=== PATIENT | male | born 1995 | race American Indian/Alaskan Native ===

== ENCOUNTER 2016-09-16 22:54 | Emergency (ER) | payer SELFPAY ==
[2016-09-17 01:01] VITALS: BP 127/67
[2016-09-17 02:04] LABS: Basophils % (Auto) 0.6 % (0.0-1.8); Eosinophils % (Auto) 1.4 % (0.0-4.3); Hematocrit 42.4 % (35.5-45.6); Hemoglobin 14.1 gm/dl (11.8-15.2); Mean Corpuscular HGB Conc 33 % (32-34); Mean Corpuscular Hemoglobin 28 pg (28-32); Mean Corpuscular Volume 83 fl (84-94); Platelet Count 237 K/mm3 (140-440); Red Blood Count 5.12 M/mm3 (3.65-5.03); White Blood Count 8.3 K/mm3 (4.5-11.0)
[2016-09-17 02:21] LABS: Alanine Aminotransferase 14 units/L (7-56); Albumin 4.2 g/dL (3.9-5); Albumin/Globulin Ratio 1.6 %; Alkaline Phosphatase 88 units/L (35-129); Anion Gap 15 mmol/L; Bilirubin,Total 0.5 mg/dL (0.1-1.2); Blood Urea Nitrogen 9 mg/dL (9-20); Calcium 8.9 mg/dL (8.4-10.2); Carbon Dioxide 28 mmol/L (22-30); Glucose 69 mg/dL (75-100); Lipase 20 units/L (13-60); Potassium 3.2 mmol/L (3.6-5.0); Sodium 141 mmol/L (137-145); Total Protein 6.8 g/dL (6.3-8.2)
[2016-09-17 03:42] LABS: Bilirubin,Urine NEG (Negative); Blood,Urine NEG (Negative); Ketones,Urine TR mg/dL (Negative); Leukocyte Esterase,Urine NEG (Negative); Mucus,Urine 3+ /HPF; Nitrite,Urine NEG (Negative)
--- NOTE | 2016-09-18 01:45 | ED Elopement Review ---
ED Pt Elopement review - Results review Lab results: Laboratory Tests 09/17/16 09/17/16 09/17/16 01:47 01:47 Unknown WBC 8.3 RBC 5.12 H Hgb 14.1 Hct 42.4 MCV 83 L MCH 28 MCHC 33 RDW 14.0 Plt Count 237 Lymph % (Auto) 29.9 [place] % (Auto) 11.2 H Eos % (Auto) 1.4 Baso % (Auto) 0.6 Lymph # 2.5 [place] # 0.9 H Eos # 0.1 Baso # 0.0 Seg Neutrophils % 56.9 Seg Neutrophils # 4.7 Sodium 141 Potassium 3.2 L Chloride 101.0 Carbon Dioxide 28 Anion Gap 15 BUN 9 Creatinine 1.0 Estimated GFR > 60 BUN/Creatinine Ratio 9.00 Glucose 69 L Calcium 8.9 Total Bilirubin 0.5 AST 19 ALT 14 Alkaline Phosphatase 88 Total Protein 6.8 Albumin 4.2 Albumin/Globulin Ratio 1.6 Lipase 20 Urine Color Yellow Urine Turbidity Clear Urine pH 7.0 Ur Specific [place] 1.030 Urine Protein 30 mg/dl Urine Glucose (UA) Neg Urine Ketones Tr Urine Blood Neg Urine Nitrite Neg Urine Bilirubin Neg Urine Urobilinogen 2.0 Ur Leukocyte Esterase Neg Urine WBC (Auto) 1.0 Urine RBC (Auto) 7.0 U Epithel Cells (Auto) 1.0 Amorphous Crystals Few Urine Mucus 3+ - Call Back decision Pt Call Back Decision: Pt to F/U with PMD (low potassium, needs supplement/ banana's, follow up, may return if symptoms continue)
== END 2016-09-17 03:41 | disposition left against medical advice (07) ==
LOC: ED 22:54
DX: K92.0 Hematemesis (principal); Z53.21 Procedure and treatment not carried out due to patient leaving prior to being seen by health care provider
CPT/HCPCS: 36415; 80053; 81001; 83690; 85025

== ENCOUNTER 2016-09-17 18:43 | Emergency (ER) | payer SELFPAY ==
[2016-09-17 19:05] VITALS: BP 129/73
[2016-09-17] MEDS ORDERED: KEPPRA 1,000 MG/NS 0.75% 100ML 1,000 MG/100 ML BAG IV ONE (23:40)
[2016-09-17] MEDS ORDERED: TORADOL IM ONE (23:40)
--- NOTE | 2016-09-18 00:36 | Emergency Department Report ---
ED Seizure HPI - General Chief Complaint: Seizure Stated Complaint: SEIZURE /VOMITTING Time Seen by Provider: 09/17/16 23:10 Source: patient Mode of arrival: Ambulatory Limitations: No Limitations - History of Present Illness Initial Comments: 21-year-old male with a past medical history of seizure disorder presents to the hospital complaints of seizure yesterday and chest pain. Patient had a seizure yesterday. He denies any preceding symptoms. He has been out of seizure medication Dilantin and Depakote for the last 3 weeks. This has not been taking his medication because he does not have a primary care doctor for med refill. Patient states he came to the ED today with anterior chest pain for the last 2 days. Pain is in the middle of the chest and upper mid chest, moderate, constant, fluctuates in intensity, and aching. Worse with palpation and movement. Patient performs heavy lifting at work. Denies shortness of breath, recent cough, or fever. 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 - Related Data Previous Rx's Medication Instructions Recorded Last Taken Type Divalproex Dr [Depakote Dr] 500 mg PO BID #60 tablet 05/31/[address] [DepaKOTE DR] 250 mg PO BID #60 tablet 09/18/16 Unknown Rx Ibuprofen [Motrin] 800 mg PO Q8HR PRN #30 tablet 09/18/16 Unknown Rx Phenytoin [Dilantin] 100 mg PO Q8HR #90 capsule 09/18/16 Unknown Rx Allergies Allergy/AdvReac Type Severity Reaction Status Date / Time shellfish derived AdvReac Anaphylaxis Verified 05/27/15 19:09 ED Review of Systems ROS: Stated complaint: SEIZURE /VOMITTING Other details as noted in HPI Comment: All other systems reviewed and negative Other: Constitutional: No fevers chills Eyes: No eye pain visual changes ENT: No ear pain or throat pain Neck: Denies pain Respiratory: Denies cough wheezing shortness of breath Cardiovascular: Denies cpalpitations, syncope GI: Denies abdominal pain, nausea, vomiting, diarrhea : Denies dysuria Musculoskeletal: Denies back pain Skin: Denies rash, lesions, erythema Neurologic: Denies headache, numbness, weakness ED Past Medical Hx - Past Medical History Previous Medical History?: Yes Hx Hypertension: No Hx Heart Attack/AMI: No Hx Congestive Heart Failure: No Hx Diabetes: No Hx Seizures: Yes (last known seizure >3 weeks ago) Hx Psychiatric Treatment: Yes ('eratic behavioral disorder') Hx Asthma: No Hx COPD: No Hx HIV: No Additional medical history: Tetanus updated yesterday - Surgical History Past Surgical History?: Yes Hx Appendectomy: Yes Additional Surgical History: cyst removed from chest - Social History Smoking Status: Current Every Day Smoker Substance Use Type: Alcohol, Prescribed - Medications Home Medications: Home Medications Medication Instructions Recorded Confirmed Last Taken Type Divalproex Dr [Depakote Dr] 500 mg PO BID #60 tablet 05/31/[address] [DepaKOTE DR] 250 mg PO BID #60 tablet 09/18/16 Unknown Rx Ibuprofen [Motrin] 800 mg PO Q8HR PRN #30 tablet 09/18/16 Unknown Rx Phenytoin [Dilantin] 100 mg PO Q8HR #90 capsule 09/18/16 Unknown Rx ED Physical Exam - General Limitations: No Limitations - Other Other exam information: General: No limitations, patient is alert in no acute distress Head exam: Atraumatic, normocephalic Eyes exam: Normal appearance, pupils equal reactive to light, extraocular movements intact ENT: Moist mucous membrane, normal oropharynx Neck exam: Normal inspection, full range of motion, no meningismus nontender Respiratory exam: Clear to auscultation bilateral, no wheezes, rales, crackles Cardiovascular: Normal rate and rhythm, normal heart sounds. Reproducible sternal chest wall tenderness Abdomen: Soft, nondistended, and nontender, with normal bowel sounds, no rebound, or guarding Extremity: Full range of motion normal inspection no deformity Back: Normal Inspection, full range of motion, no tenderness Neurologic: Alert, oriented x3, cranial nerves intact, no motor or sensory deficit Psychiatric: normal affect, normal mood Skin: Warm, dry, intactm ED Course Vital Signs 09/17/16 19:02 Temperature 98.3 F Pulse Rate 93 H Respiratory 20 Rate Blood Pressure 129/73 O2 Sat by Pulse 100 Oximetry - Reevaluation(s) Reevaluation #1: 09/18/16 00:38 Patient treated with Depakote by mouth, Dilantin IV, and Toradol ED Medical Decision Making - EKG Data -: EKG Interpreted by Me (nsr rate 73) - EKG Data When compared to previous EKG there are: previous EKG unavailable - Medical Decision Making Patient will be treated symptomatically for chest wall pain as well as given a rest from his job for 2 days to recover. Patient received IV medications for seizures and will be discharged on his stated medication doses - Differential Diagnosis costochondritis, atypical chest pain, bradycardia seizure, medication nonco Critical Care Time: No Critical care attestation.: If time is entered above; I have spent that time in minutes in the direct care of this critically ill patient, excluding procedure time. ED Disposition Clinical Impression: Breakthrough seizure, Costochondritis, acute Disposition: DISCHARGED TO HOME OR SELFCARE Is pt being admited?: No Does the pt Need Aspirin: No Condition: Stable Instructions: Costochondritis (ED), Recurrent Seizures Adult (ED) Additional Instructions: Take the medication as prescribed. Follow-up with the primary care doctor and neurologist provided. Return if symptoms worsen Prescriptions: Divalproex Dr [DepaKOTE DR] 250 mg PO BID #60 tablet Ibuprofen [Motrin] 800 mg PO Q8HR PRN #30 tablet PRN Reason: Pain Phenytoin [Dilantin] 100 mg PO Q8HR #90 capsule Referrals: DARON IBANEZ MD [Staff Physician] - 3-5 Days [facility] [Provider Group] - 3-5 Days Time of Disposition: 01:11
== END 2016-09-18 01:24 | disposition home or self-care (01) ==
LOC: ED 18:43
DX: G40.909 Epilepsy, unspecified, not intractable, without status epilepticus (principal); M94.0 Chondrocostal junction syndrome [Tietze]; F17.200 Nicotine dependence, unspecified, uncomplicated; Z91.013 Allergy to seafood
CPT/HCPCS: 93005; 93010; 96365; 96372; 99283; J1885; J1953

== ENCOUNTER 2018-07-29 19:19 | Emergency (ER) | payer SELFPAY ==
--- NOTE | 2018-07-29 22:55 | Emergency Department Report ---
ED Chest Pain HPI - General Chief Complaint: Chest Pain Stated Complaint: HEAD/CHEST PAIN Source: patient Mode of arrival: Ambulatory Limitations: No Limitations - History of Present Illness Initial Comments: This is a 23-year-old -[place] male who presents with chest pain 3 weeks. He states when he wakes up in the morning he is covered in sweat and feel chest pain to the center of chest. He reports symptoms have been intermittent for the past 3 weeks. He also complains of headache and a nonproductive cough. He is a current cigarette smoker one pack per 3 days. He denies dizziness, radiating pain, shortness of breath, nausea or vomiting, or abdominal pain. MD Complaint: chest pain Onset/Timin -: week(s) Onset: awoke with symptoms Pain Location: substernal Pain Radiation: none Severity: moderate Quality: tightness Consistency: intermittent Improves With: nothing Worsens With: nothing re: diaphoresis. denies: nausea, vomting, dyspnea, sense of impending doom Other Symptoms: cough. denies: fever, syncope, rash, acid taste in mouth, leg swelling, palpitations, burping Treatments Prior to Arrival: none - Related Data On Oral Contraceptives: No Previous Rx's Medication Instructions Recorded Last Taken Type Divalproex Dr [Nate Chicas] 500 mg PO BID #60 tablet 05/31/[address] Luis CHICAS] 250 mg PO BID #60 tablet 09/18/16 Unknown Rx Ibuprofen [Motrin] 800 mg PO Q8HR PRN #30 tablet 09/18/16 Unknown Rx Phenytoin [Dilantin] 100 mg PO Q8HR #90 capsule 09/18/16 Unknown Rx Amoxicillin/K Clav Tab [Augmentin 1 tab PO Q12HR #20 tab 06/17/18 Unknown Rx 875MG TAB] Cetirizine HCl [ZyrTEC] 10 mg PO QAM 14 Days #14 capsule 06/17/18 Unknown Rx Fluticasone [Flonase] 1 spray NS QDAY 14 Days #1 bottle 06/17/18 Unknown Rx Ibuprofen [Motrin] 600 mg PO Q8H PRN #12 tablet 06/17/18 Unknown Rx methylPREDNISolone [Medrol Dose 4 mg PO DAILY #1 tab.ds.pk 06/17/18 Unknown Rx To] Allergies Allergy/AdvReac Type Severity Reaction Status Date / Time shellfish derived AdvReac Anaphylaxis Verified 05/27/15 19:09 Heart Score - HEART Score History: Slightly suspicious EKG: Normal Age: < 45 Risk factors: 1-2 risk factors Troponin: < normal limit HEART Score: 1 - Critical Actions Critical Actions: 0-3 pts:0.9-1.7%risk of adverse cardiac event.Candidate for discharge ED Review of Systems ROS: Stated complaint: HEAD/CHEST PAIN Other details as noted in HPI Constitutional: diaphoresis. denies: chills, fever ENT: denies: ear pain, throat pain Respiratory: denies: cough, shortness of breath, wheezing Cardiovascular: chest pain. denies: palpitations Endocrine: no symptoms reported Gastrointestinal: denies: abdominal pain, nausea, diarrhea Neurological: denies: headache, weakness, paresthesias Psychiatric: denies: anxiety, depression ED Past Medical Hx - Past Medical History Hx Hypertension: No Hx Heart Attack/AMI: No Hx Congestive Heart Failure: No Hx Diabetes: No Hx Seizures: Yes (last known seizure >3 weeks ago) Hx Psychiatric Treatment: Yes ('eratic behavioral disorder') Hx Asthma: No Hx COPD: No Hx HIV: No Additional medical history: Tetanus updated yesterday - Surgical History Hx Appendectomy: Yes (?) Additional Surgical History: cyst removed from chest ? - Social History Smoking Status: Current Every Day Smoker Substance Use Type: Alcohol - Medications Home Medications: Home Medications Medication Instructions Recorded Confirmed Last Taken Type Divalproex [Nate Chicas] 500 mg PO BID #60 tablet 05/31/[address] Luis CHICAS] 250 mg PO BID #60 tablet 09/18/16 Unknown Rx Ibuprofen [Motrin] 800 mg PO Q8HR PRN #30 tablet 09/18/16 Unknown Rx Phenytoin [Dilantin] 100 mg PO Q8HR #90 capsule 09/18/16 Unknown Rx Amoxicillin/K Clav Tab [Augmentin 1 tab PO Q12HR #20 tab 06/17/18 Unknown Rx 875MG TAB] Cetirizine HCl [ZyrTEC] 10 mg PO QAM 14 Days #14 capsule 06/17/18 Unknown Rx Fluticasone [Flonase] 1 spray NS QDAY 14 Days #1 bottle 06/17/18 Unknown Rx Ibuprofen [Motrin] 600 mg PO Q8H PRN #12 tablet 06/17/18 Unknown Rx methylPREDNISolone [Medrol Dose 4 mg PO DAILY #1 tab.ds.pk 06/17/18 Unknown Rx To] ED Physical Exam - General Limitations: No Limitations General appearance: alert, in no apparent distress - ENT ENT exam: Present: mucous membranes moist, other (turbinates mildly congested with clear discharge) - Neck Neck exam: Present: normal inspection. Absent: lymphadenopathy - Respiratory Respiratory exam: Present: normal lung sounds bilaterally. Absent: respiratory distress, wheezes, rales, rhonchi, stridor, chest wall tenderness - Cardiovascular Cardiovascular Exam: Present: regular rate, normal rhythm. Absent: systolic murmur, diastolic murmur, rubs, gallop - GI/Abdominal GI/Abdominal exam: Present: soft, normal bowel sounds. Absent: distended, tenderness, guarding, rebound, rigid, organomegaly, mass - Neurological Exam Neurological exam: Present: alert, oriented X3 - Psychiatric Psychiatric exam: Present: normal affect, normal mood - Skin Skin exam: Present: warm, dry, intact, normal color. Absent: rash ED Course Vital Signs 07/29/18 07/30/18 07/30/18 19:44 00:27 00:30 Temperature 98.2 F Pulse Rate 90 89 103 H Respiratory 16 15 17 Rate Blood Pressure 125/64 112/52 O2 Sat by Pulse 98 98 Oximetry 07/30/18 07/30/18 00:46 02:20 Temperature Pulse Rate 87 84 Respiratory 15 17 Rate Blood Pressure 112/52 O2 Sat by Pulse 99 98 Oximetry ED Medical Decision Making - Lab Data Result diagrams: 07/29/18 23:18 07/29/18 23:18 Lab Results 07/29/18 07/29/18 07/30/18 Range/Units 23:18 23:18 00:40 WBC 6.9 (4.5-11.0) K/mm3 RBC 5.79 H (3.65-5.03) M/mm3 Hgb 16.0 H (11.8-15.2) gm/dl Hct 48.1 H (35.5-45.6) % MCV 83 L (84-94) fl MCH 28 (28-32) pg MCHC 33 (32-34) % RDW 14.3 (13.2-15.2) % Plt Count 288 (140-440) K/mm3 Lymph % (Auto) 32.9 (13.4-35.0) % [place] % (Auto) 9.4 H (0.0-7.3) % Eos % (Auto) 4.1 (0.0-4.3) % Baso % (Auto) 0.8 (0.0-1.8) % Lymph # 2.3 (1.2-5.4) K/mm3 [place] # 0.6 (0.0-0.8) K/mm3 Eos # 0.3 (0.0-0.4) K/mm3 Baso # 0.1 (0.0-0.1) K/mm3 Seg Neutrophils % 52.8 (40.0-70.0) % Seg Neutrophils # 3.6 (1.8-7.7) K/mm3 Sodium 140 (137-145) mmol/L Potassium 4.4 (3.6-5.0) mmol/L Chloride 102.9 (98-107) mmol/L Carbon Dioxide 23 (22-30) mmol/L Anion Gap 19 mmol/L BUN 33 H (9-20) mg/dL Creatinine 0.8 (0.8-1.5) mg/dL Estimated GFR > 60 ml/min BUN/Creatinine Ratio 41 % Glucose 99 (75-100) mg/dL Calcium 9.3 (8.4-10.2) mg/dL Total Bilirubin 0.30 (0.1-1.2) mg/dL AST 27 (5-40) units/L ALT 26 (7-56) units/L Alkaline Phosphatase 82 (35-129) units/L Total Creatine Kinase 229 H (55-170) units/L Troponin T < 0.010 < 0.010 (0.00-0.029) ng/mL Total Protein 7.2 (6.3-8.2) g/dL Albumin 4.9 (3.9-5) g/dL Albumin/Globulin Ratio 2.1 % Triglycerides TNR Cholesterol TNR LDL Cholesterol Direct TNR HDL Cholesterol TNR Cholesterol/HDL Ratio TNR - EKG Data -: No EKG Interpreted by Me (EKG interpreted by the attending) EKG shows normal: sinus rhythm Rate: normal - Radiology Data Radiology results: report reviewed FINAL REPORT PROCEDURE: Chest. TECHNIQUE: PA and lateral views. HISTORY: Chest pain. COMPARISON: No prior studies are available for comparison. FINDINGS: The heart and mediastinum appear normal. The lungs are clear and well expanded. There are no pleural effusions. The soft tissues and regional skeleton are unremarkable. IMPRESSION: Normal study. - Medical Decision Making This is a 23 y.o. male that presents with chest pain for 3 weeks. Patient is stable and was examined by me. Vital signs normal. Labs, EKG, and chest x-ray were obtained. Consult Dr. Cuello. Initial CMP findings of elevated troponin, BUN and creatinine. There was an instrument error with CMP and new results are remarkable. Chest pain. Referral to cardiology and primary care provider. Discussed plan with patient and agreed to plan. No further questions noted by the patient. Discharged home in stable condition. Follow up with PCP in 2-3 days. Critical care attestation.: If time is entered above; I have spent that time in minutes in the direct care of this critically ill patient, excluding procedure time. ED Disposition Clinical Impression: Cough in adult Chest pain Qualifiers: Chest pain type: other chest pain Qualified Code(s): R07.89 - Other chest pain Disposition: DC-01 TO HOME OR SELFCARE Is pt being admited?: No Does the pt Need Aspirin: No Condition: Stable Instructions: Chest Pain (ED) Additional Instructions: Follow-up with primary care provider in cardiology. Return to the emergency room if chest pain, shortness of breath, lightheaded, or nausea or vomiting. Referrals: [facility] [Outside] - 3-5 Days [facility] [Outside] - 3-5 Days [facility] [Outside] - 3-5 Days Forms: Work/School Release Form(ED) Time of Disposition: 02:05
[2018-07-29 23:37] LABS: Basophils # (Auto) 0.1 K/mm3 (0.0-0.1); Basophils % (Auto) 0.8 % (0.0-1.8); Eosinophils # (Auto) 0.3 K/mm3 (0.0-0.4); Eosinophils % (Auto) 4.1 % (0.0-4.3); Hematocrit 48.1 % (35.5-45.6); Lymphocytes # (Auto) 2.3 K/mm3 (1.2-5.4); Lymphocytes % (Auto) 32.9 % (13.4-35.0); Mean Corpuscular HGB Conc 33 % (32-34); Mean Corpuscular Volume 83 fl (84-94); Monocytes # (Auto) 0.6 K/mm3 (0.0-0.8); Monocytes % (Auto) 9.4 % (0.0-7.3); Platelet Count 288 K/mm3 (140-440); Red Blood Count 5.79 M/mm3 (3.65-5.03); Red Cell Distribution Width 14.3 % (13.2-15.2)
--- NOTE | 2018-07-29 23:54 | XRay Report ---
FINAL REPORT PROCEDURE: Chest. TECHNIQUE: PA and lateral views. HISTORY: Chest pain. COMPARISON: No prior studies are available for comparison. FINDINGS: The heart and mediastinum appear normal. The lungs are clear and well expanded. There are no pleural effusions. The soft tissues and regional skeleton are unremarkable. IMPRESSION: Normal study.
[2018-07-29 23:57] LABS: Alanine Aminotransferase 26 units/L (7-56); Albumin 4.9 g/dL (3.9-5); Blood Urea Nitrogen 33 mg/dL (9-20); Hemolysis Index 31
[2018-07-30] MEDS ORDERED: NACL 0.9% 1000 ML 1,000 ML IV ONE (00:29)
[2018-07-30 00:37] LABS: BUN/Creatinine Ratio 41; Calcium 9.3 mg/dL (8.4-10.2)
[2018-07-30 00:38] LABS: Chol/HDL Ratio TNR %; HDL Cholesterol TNR mg/dL (40-59); LDL Cholesterol,Direct TNR mg/dL (50-130)
[2018-07-30 00:52] VITALS: BP 112/52
== END 2018-07-30 02:20 | disposition home or self-care (01) ==
LOC: ED 19:19
DX: R07.89 Other chest pain (principal); R05 Cough; F17.200 Nicotine dependence, unspecified, uncomplicated; Z91.013 Allergy to seafood
CPT/HCPCS: 36415; 71046; 80053; 80061; 82550; 84484; 85025; 93005; 93010

== ENCOUNTER 2019-04-03 09:29 | Emergency (ER) | payer SELFPAY ==
--- NOTE | 2019-04-03 10:27 | Emergency Department Report ---
ED General Adult HPI - General Chief complaint: Abdominal Pain Stated complaint: VOMITING BLOOD/BUMP ON BACK Time Seen by Provider: 04/03/19 10:10 Source: patient Mode of arrival: Ambulatory Limitations: No Limitations - History of Present Illness Initial comments: This is a 24 year old male with a history of bipolar disorder. He states that he vomited "his food" earlier today. After the food emesis he states that he saw bright red blood. He denied eating any red pigmented material. He does not complain of abdominal pain. He does not report black stools or diarrhea. He is no longer nauseated. He states he is does not have a history of GI bleeding at all. He has not been recently drinking alcohol. Patient states that incidentally his fiance saw a bump on his back and he thought he have that checked out as well. -: Sudden Consistency: now resolved Improves with: none Worsens with: none Associated Symptoms: denies other symptoms Treatments Prior to Arrival: none - Related Data Previous Rx's Medication Instructions Recorded Last Taken Type Divalproex Dr [Nate Chicas] 500 mg PO BID #60 tablet 05/31/[address] Luis CHICAS] 250 mg PO BID #60 tablet 09/18/16 Unknown Rx Ibuprofen [Motrin] 800 mg PO Q8HR PRN #30 tablet 09/18/16 Unknown Rx Phenytoin [Dilantin] 100 mg PO Q8HR #90 capsule 09/18/16 Unknown Rx Amoxicillin/K Clav Tab [Augmentin 1 tab PO Q12HR #20 tab 06/17/18 Unknown Rx 875MG TAB] Cetirizine HCl [ZyrTEC] 10 mg PO QAM 14 Days #14 capsule 06/17/18 Unknown Rx Fluticasone [Flonase] 1 spray NS QDAY 14 Days #1 bottle 06/17/18 Unknown Rx Ibuprofen [Motrin] 600 mg PO Q8H PRN #12 tablet 06/17/18 Unknown Rx methylPREDNISolone [Medrol Dose 4 mg PO DAILY #1 tab.ds.pk 06/17/18 Unknown Rx To] Lansoprazole [Prevacid] 15 mg PO BID #30 cap 04/03/19 Unknown Rx Allergies Allergy/AdvReac Type Severity Reaction Status Date / Time shellfish derived AdvReac Anaphylaxis Verified 05/27/15 19:09 ED Review of Systems ROS: Stated complaint: VOMITING BLOOD/BUMP ON BACK Other details as noted in HPI Constitutional: denies: chills, fever Eyes: denies: eye pain, eye discharge, vision change ENT: denies: ear pain, throat pain Respiratory: denies: cough, shortness of breath, wheezing Cardiovascular: denies: chest pain, palpitations Endocrine: no symptoms reported Gastrointestinal: hematemesis. denies: abdominal pain, nausea, diarrhea, constipation, melena, hematochezia Genitourinary: denies: urgency, dysuria Musculoskeletal: denies: back pain, joint swelling, arthralgia Skin: denies: rash, lesions Neurological: denies: headache, weakness, paresthesias Psychiatric: denies: anxiety, depression Hematological/Lymphatic: denies: easy bleeding, easy bruising ED Past Medical Hx - Past Medical History Hx Hypertension: No Hx Heart Attack/AMI: No Hx Congestive Heart Failure: No Hx Diabetes: No Hx Seizures: Yes (last known seizure >3 weeks ago) Hx Psychiatric Treatment: Yes ('eratic behavioral disorder') Hx Asthma: No Hx COPD: No Hx HIV: No Additional medical history: Tetanus updated yesterday - Surgical History Hx Appendectomy: Yes (?) Additional Surgical History: cyst removed from chest ? - Social History Smoking Status: Current Every Day Smoker Substance Use Type: None - Medications Home Medications: Home Medications Medication Instructions Recorded Confirmed Last Taken Type Divalproex Dr [Nate Chicas] 500 mg PO BID #60 tablet 05/31/[address] [Nate CHICAS] 250 mg PO BID #60 tablet 09/18/16 Unknown Rx Ibuprofen [Motrin] 800 mg PO Q8HR PRN #30 tablet 09/18/16 Unknown Rx Phenytoin [Dilantin] 100 mg PO Q8HR #90 capsule 09/18/16 Unknown Rx Amoxicillin/K Clav Tab [Augmentin 1 tab PO Q12HR #20 tab 06/17/18 Unknown Rx 875MG TAB] Cetirizine HCl [ZyrTEC] 10 mg PO QAM 14 Days #14 capsule 06/17/18 Unknown Rx Fluticasone [Flonase] 1 spray NS QDAY 14 Days #1 bottle 06/17/18 Unknown Rx Ibuprofen [Motrin] 600 mg PO Q8H PRN #12 tablet 06/17/18 Unknown Rx methylPREDNISolone [Medrol Dose 4 mg PO DAILY #1 tab.ds.pk 06/17/18 Unknown Rx To] Lansoprazole [Prevacid] 15 mg PO BID #30 cap 04/03/19 Unknown Rx ED Physical Exam - General Limitations: No Limitations General appearance: alert, in no apparent distress - Head Head exam: Present: atraumatic, normocephalic - Eye Eye exam: Present: normal appearance. Absent: scleral icterus - ENT ENT exam: Present: mucous membranes moist - Neck Neck exam: Present: normal inspection - Respiratory Respiratory exam: Present: normal lung sounds bilaterally. Absent: respiratory distress - Cardiovascular Cardiovascular Exam: Present: regular rate, normal rhythm. Absent: systolic murmur, diastolic murmur, rubs, gallop - GI/Abdominal GI/Abdominal exam: Present: soft, normal bowel sounds. Absent: distended, tenderness, guarding, rebound, rigid - Rectal Rectal exam: Present: deferred - Extremities Exam Extremities exam: Present: normal inspection - Back Exam Back exam: Present: normal inspection, other (he is small perhaps 1 cm apparent lipoma is present left flank. It is nonfluctuant.There is no erythema or sign of infection.). Absent: CVA tenderness (R), CVA tenderness (L), muscle spasm, paraspinal tenderness, vertebral tenderness - Neurological Exam Neurological exam: Present: alert, oriented X3, CN II-XII intact. Absent: motor sensory deficit - Psychiatric Psychiatric exam: Present: normal affect, normal mood - Skin Skin exam: Present: warm, dry, intact, normal color. Absent: rash ED Course Vital Signs 04/03/19 04/03/19 04/03/19 09:41 10:32 11:05 Temperature 98.2 F Pulse Rate 85 68 Respiratory 18 12 14 Rate Blood Pressure 118/42 Blood Pressure 117/71 [Right] O2 Sat by Pulse 98 100 Oximetry ED Medical Decision Making - Lab Data Result diagrams: 04/03/19 10:42 04/03/19 10:42 Laboratory Results - last 24 hr 04/03/19 04/03/19 10:42 10:42 WBC 6.5 RBC 5.54 H Hgb 15.7 H Hct 46.6 H MCV 84 MCH 28 MCHC 34 RDW 14.9 Plt Count 268 Lymph % (Auto) 27.3 [place] % (Auto) 9.7 H Eos % (Auto) 2.9 Baso % (Auto) 0.6 Lymph # 1.8 [place] # 0.6 Eos # 0.2 Baso # 0.0 Seg Neutrophils % 59.5 Seg Neutrophils # 3.9 Sodium 139 Potassium 4.5 Chloride 102.2 Carbon Dioxide 25 Anion Gap 16 BUN 13 Creatinine 1.0 Estimated GFR > 60 BUN/Creatinine Ratio 13 Glucose 84 Calcium 9.1 Critical care attestation.: If time is entered above; I have spent that time in minutes in the direct care of this critically ill patient, excluding procedure time. ED Disposition Clinical Impression: Hematemesis of unknown cause, Lipoma of back Disposition: DC- TO HOME OR SELFCARE Is pt being admited?: No Does the pt Need Aspirin: No Condition: Stable Instructions: Gastritis (ED), Lipoma (ED) Additional Instructions: Return any further sign of throwing up blood or black stool or abdominal pain as needed. Follow up with GI doctor. The area on her back appears to be a benign fatty collection. However, evaluation by a cream gatherer as recommended. Follow-up at [facility]/at length with GI. Rx as directed. Avoid aspirin, arthritis medicine alcohol stomach irritants. Prescriptions: Lansoprazole [Prevacid] 15 mg PO BID #30 cap Referrals: [facility] [Provider Group] - 3-5 Days [facility] [Provider Group] - 2-3 Days Time of Disposition: 12:07
[2019-04-03 10:59] LABS: Basophils % (Auto) 0.6 % (0.0-1.8); Eosinophils # (Auto) 0.2 K/mm3 (0.0-0.4); Eosinophils % (Auto) 2.9 % (0.0-4.3); Hematocrit 46.6 % (35.5-45.6); Hemoglobin 15.7 gm/dl (11.8-15.2); Lymphocytes # (Auto) 1.8 K/mm3 (1.2-5.4); Lymphocytes % (Auto) 27.3 % (13.4-35.0); Mean Corpuscular HGB Conc 34 % (32-34); Mean Corpuscular Volume 84 fl (84-94); Monocytes # (Auto) 0.6 K/mm3 (0.0-0.8); Monocytes % (Auto) 9.7 % (0.0-7.3); Platelet Count 268 K/mm3 (140-440); Red Blood Count 5.54 M/mm3 (3.65-5.03); Red Cell Distribution Width 14.9 % (13.2-15.2)
[2019-04-03 11:05] VITALS: BP 117/71
[2019-04-03 11:37] LABS: BUN/Creatinine Ratio 13; Blood Urea Nitrogen 13 mg/dL (9-20); Calcium 9.1 mg/dL (8.4-10.2); Hemolysis Index 18
== END 2019-04-03 12:20 | disposition home or self-care (01) ==
LOC: ED 09:29
DX: K92.0 Hematemesis (principal); D17.1 Benign lipomatous neoplasm of skin and subcutaneous tissue of trunk; F17.200 Nicotine dependence, unspecified, uncomplicated; Z91.013 Allergy to seafood; Z98.890 Other specified postprocedural states
CPT/HCPCS: 36415; 80048; 85025

== ENCOUNTER 2019-05-02 16:40 | Emergency (ER) | payer SELFPAY ==
[2019-05-02 16:51] VITALS: BP 127/79
--- NOTE | 2019-05-02 16:52 | Event Note ---
ED Screening Note ED Screening Note: pt presents N/V/D that began last night no sick contacts last night ate at a restaurant last night and believes the food was bad abdominal cramping PMHx seizures no allergies to meds This initial assessment/diagnostic orders/clinical plan/treatment(s) is/are subject to change based on patients health status, clinical progression and re- assessment by fellow clinical providers in the ED. Further treatment and workup at subsequent clinical providers discretion. Patient/guardian urged not to elope from the ED as their condition may be serious if not clinically assessed and managed. Initial orders include: labs
[2019-05-02 17:49] LABS: Basophils # (Auto) 0.1 K/mm3 (0.0-0.1); Basophils % (Auto) 0.8 % (0.0-1.8); Eosinophils # (Auto) 0.2 K/mm3 (0.0-0.4); Eosinophils % (Auto) 2.8 % (0.0-4.3); Hematocrit 46.9 % (35.5-45.6); Hemoglobin 15.8 gm/dl (11.8-15.2); Lymphocytes # (Auto) 2.3 K/mm3 (1.2-5.4); Lymphocytes % (Auto) 28.8 % (13.4-35.0); Mean Corpuscular HGB Conc 34 % (32-34); Mean Corpuscular Volume 83 fl (84-94); Monocytes # (Auto) 0.7 K/mm3 (0.0-0.8); Monocytes % (Auto) 9.4 % (0.0-7.3); Platelet Count 274 K/mm3 (140-440); Red Blood Count 5.68 M/mm3 (3.65-5.03); Red Cell Distribution Width 14.2 % (13.2-15.2)
[2019-05-02] MEDS ORDERED: ONDANSETRON 4 MG/2 ML INJ IM ONE (17:53)
[2019-05-02] MEDS ORDERED: DICYCLOMINE 20 MG/2 ML INJ IM ONE (17:53)
--- NOTE | 2019-05-02 18:08 | Emergency Department Report ---
ED N/V/D HPI - General Chief complaint: Abdominal Pain Stated complaint: ABD PAIN/VOMITING/DIARRHEA Time Seen by Provider: 05/02/19 16:50 Source: patient Mode of arrival: Ambulatory Limitations: No Limitations - History of Present Illness MD complaint: nausea, vomiting, diarrhea -: Gradual, days(s) (1) Description of Vomiting: watery Description of Diarrhea: water Associated Abdominal Pain: Yes Location: diffuse Radiation: none Severity: mild Pain Scale: 4 Quality: cramping Improves with: none Worsens with: none Context: possible food poisoning (case last night he ate a hamburger that was wrong inside. Patient had taken a large bite and swallow before he realized that the meat also received spoil.) Associated Symptoms: nausea/vomiting. denies: myalgias, chest pain, cough, diaphoresis, fever/chills, headaches, loss of appetite, malaise, rash, shortness of breath, syncope, weakness - Related Data Previous Rx's Medication Instructions Recorded Last Taken Type Divalproex [Nate Chicas] 500 mg PO BID #60 tablet 05/31/[address] Luis CHICAS] 250 mg PO BID #60 tablet 09/18/16 Unknown Rx Ibuprofen [Motrin] 800 mg PO Q8HR PRN #30 tablet 09/18/16 Unknown Rx Phenytoin [Dilantin] 100 mg PO Q8HR #90 capsule 09/18/16 Unknown Rx Amoxicillin/K Clav Tab [Augmentin 1 tab PO Q12HR #20 tab 06/17/18 Unknown Rx 875MG TAB] Cetirizine HCl [ZyrTEC] 10 mg PO QAM 14 Days #14 capsule 06/17/18 Unknown Rx Fluticasone [Flonase] 1 spray NS QDAY 14 Days #1 bottle 06/17/18 Unknown Rx Ibuprofen [Motrin] 600 mg PO Q8H PRN #12 tablet 06/17/18 Unknown Rx methylPREDNISolone [Medrol Dose 4 mg PO DAILY #1 tab.ds.pk 06/17/18 Unknown Rx To] Lansoprazole [Prevacid] 15 mg PO BID #30 cap 04/03/19 Unknown Rx Dicyclomine [Bentyl] 20 mg PO QID #10 tablet 05/02/19 Unknown Rx Ondansetron [Zofran Odt] 4 mg PO Q8HR #10 tab.rapdis 10/27/19 Unknown Rx Allergies Allergy/AdvReac Type Severity Reaction Status Date / Time shellfish derived AdvReac Anaphylaxis Verified 05/27/15 19:09 ED Review of Systems ROS: Stated complaint: ABD PAIN/VOMITING/DIARRHEA Other details as noted in HPI Comment: All other systems reviewed and negative ED Past Medical Hx - Past Medical History Previous Medical History?: Yes Hx Hypertension: No Hx Heart Attack/AMI: No Hx Congestive Heart Failure: No Hx Diabetes: No Hx Seizures: Yes (last known seizure >3 weeks ago) Hx Psychiatric Treatment: Yes ('eratic behavioral disorder') Hx Asthma: No Hx COPD: No Hx HIV: No Additional medical history: Tetanus updated yesterday - Surgical History Past Surgical History?: Yes Hx Appendectomy: Yes (?) Additional Surgical History: cyst removed from chest ? - Social History Smoking Status: Current Every Day Smoker Substance Use Type: Alcohol - Medications Home Medications: Home Medications Medication Instructions Recorded Confirmed Last Taken Type Divalproex Dr [Nate Chicas] 500 mg PO BID #60 tablet 05/31/[address] Luis CHICAS] 250 mg PO BID #60 tablet 09/18/16 Unknown Rx Ibuprofen [Motrin] 800 mg PO Q8HR PRN #30 tablet 09/18/16 Unknown Rx Phenytoin [Dilantin] 100 mg PO Q8HR #90 capsule 09/18/16 Unknown Rx Amoxicillin/K Clav Tab [Augmentin 1 tab PO Q12HR #20 tab 06/17/18 Unknown Rx 875MG TAB] Cetirizine HCl [ZyrTEC] 10 mg PO QAM 14 Days #14 capsule 06/17/18 Unknown Rx Fluticasone [Flonase] 1 spray NS QDAY 14 Days #1 bottle 06/17/18 Unknown Rx Ibuprofen [Motrin] 600 mg PO Q8H PRN #12 tablet 06/17/18 Unknown Rx methylPREDNISolone [Medrol Dose 4 mg PO DAILY #1 tab.ds.pk 06/17/18 Unknown Rx To] Lansoprazole [Prevacid] 15 mg PO BID #30 cap 04/03/19 Unknown Rx Dicyclomine [Bentyl] 20 mg PO QID #10 tablet 05/02/19 Unknown Rx Ondansetron [Zofran Odt] 4 mg PO Q8HR #10 tab.rapdis 05/02/19 Unknown Rx ED Physical Exam - General Limitations: No Limitations General appearance: alert, in no apparent distress - Head Head exam: Present: atraumatic, normocephalic - Eye Eye exam: Present: normal appearance - ENT ENT exam: Present: mucous membranes moist - Neck Neck exam: Present: normal inspection - Respiratory Respiratory exam: Present: normal lung sounds bilaterally. Absent: respiratory distress, wheezes, rales, rhonchi - Cardiovascular Cardiovascular Exam: Present: regular rate, normal rhythm. Absent: normal heart sounds, systolic murmur, diastolic murmur, rubs, gallop - GI/Abdominal GI/Abdominal exam: Present: soft, normal bowel sounds. Absent: distended, tenderness, guarding, rebound - Rectal Rectal exam: Present: deferred - Extremities Exam Extremities exam: Present: normal inspection - Back Exam Back exam: Present: normal inspection - Neurological Exam Neurological exam: Present: alert, oriented X3 - Psychiatric Psychiatric exam: Present: normal affect, normal mood - Skin Skin exam: Present: warm, dry, intact, normal color. Absent: rash ED Course Vital Signs 05/02/19 16:46 Temperature 98.9 F Pulse Rate 100 H Respiratory 18 Rate Blood Pressure 127/79 O2 Sat by Pulse 97 Oximetry - Reevaluation(s) Reevaluation #1: 05/02/19 18:08 Laboratory studies will be checked to ensure the patient doesn't have electrolyte acknowledges or abnormal white count. Patient is not dizzy and his vital signs. Within normal limits. IV fluids will be withheld at this time. Will give IM Bentyl and Zofran to see if this will help with the patient's nausea which case he would be able to orally hydrate. ED Medical Decision Making - Lab Data Result diagrams: 05/02/19 17:34 05/02/19 17:34 - Medical Decision Making Patient was given antiemetics and seems to be having some improvement in his nausea. Has not vomited here in emergency department. Patient's labs or studies are within normal limits. Patient does not renal failure making Escherichia coli less likely as the source bacteria. Patient does not have any blood in the stools making Shigella less likely. Patient will be discharged home with meds for symptomatically relief. Critical care attestation.: If time is entered above; I have spent that time in minutes in the direct care of this critically ill patient, excluding procedure time. ED Disposition Clinical Impression: Food poisoning Disposition: DC-01 TO HOME OR SELFCARE Is pt being admited?: No Does the pt Need Aspirin: No Condition: Stable Instructions: Food Poisoning (ED) Referrals: SAI LYLE MD [Referring] - 3-5 Days Time of Disposition: 18:25
[2019-05-02 18:10] LABS: BUN/Creatinine Ratio 11; Blood Urea Nitrogen 10 mg/dL (9-20)
[2019-05-02 18:11] LABS: Alanine Aminotransferase 20 units/L (7-56); Albumin 4.5 g/dL (3.9-5); Calcium 9.3 mg/dL (8.4-10.2); Hemolysis Index 9
== END 2019-05-02 19:00 | disposition home or self-care (01) ==
LOC: ED 16:40
DX: A05.9 Bacterial foodborne intoxication, unspecified (principal); F17.200 Nicotine dependence, unspecified, uncomplicated; Z90.89 Acquired absence of other organs; Z91.013 Allergy to seafood; Z79.899 Other long term (current) drug therapy
CPT/HCPCS: 36415; 80053; 83690; 85025; 96372; 99283; J0500; J2405

== ENCOUNTER 2020-11-03 18:08 | Emergency (ER) | payer SELFPAY ==
--- NOTE | 2020-11-03 21:28 | Event Note ---
ED Screening Note ED Screening Note: bilateral flank pain that radiates to the abdomen that began three days ago +fever +diarrhea no vomiting no dysuria no dark or odor to urine no hematuria no pain or swelling of the testicles abdominal surgical hx of appendectomy no medication allergies to meds states he was drinking heavy ETOH states he stopped october 26 This initial assessment/diagnostic orders/clinical plan/treatment(s) is/are subject to change based on patients health status, clinical progression and re- assessment by fellow clinical providers in the ED. Further treatment and workup at subsequent clinical providers discretion. Patient/guardian urged not to elope from the ED as their condition may be serious if not clinically assessed and managed. Initial orders include: labs, UA
[2020-11-03] MEDS ORDERED: ACETAMINOPHEN 325 MG TAB PO ONE (21:29)
[2020-11-03] MEDS ORDERED: SODIUM CHLORIDE 0.9% 1000 ML IV SOLN IV ONE (21:29)
[2020-11-03 21:48] LABS: Basophils % (Auto) 0.4 % (0.0-1.8); Eosinophils % (Auto) 0.4 % (0.0-4.3); Hematocrit 49.2 % (35.5-45.6); Hemoglobin 16.5 gm/dl (11.8-15.2); Lymphocytes # (Auto) 0.8 K/mm3 (1.2-5.4); Lymphocytes % (Auto) 9.5 % (13.4-35.0); Mean Corpuscular HGB Conc 34 % (32-34); Mean Corpuscular Volume 84 fl (84-94); Monocytes # (Auto) 1.2 K/mm3 (0.0-0.8); Monocytes % (Auto) 14.6 % (0.0-7.3); Platelet Count 228 K/mm3 (140-440); Red Blood Count 5.86 M/mm3 (3.65-5.03); Red Cell Distribution Width 14.9 % (13.2-15.2)
[2020-11-03 22:25] LABS: Alanine Aminotransferase 23 units/L (7-56); Albumin 4.6 g/dL (3.9-5); BUN/Creatinine Ratio 9; Blood Urea Nitrogen 9 mg/dL (9-20); Calcium 9.1 mg/dL (8.4-10.2); Hemolysis Index 5
[2020-11-03 23:31] LABS: Bilirubin,Urine NEG (Negative); Blood,Urine SM (Negative); Color,Urine Yellow (Yellow); Mucus,Urine FEW /HPF; Protein,Urine <15 mg/dL mg/dL (Negative); Urobilinogen,Urine < 2.0 mg/dL (<2.0); WBC,Urine < 1.0 /HPF (0.0-6.0)
[2020-11-03] MEDS ORDERED: MORPHINE 2 MG/1 ML INJ IV ONE (23:52)
[2020-11-03] MEDS ORDERED: ONDANSETRON 4 MG/2 ML INJ IV ONE (23:52)
[2020-11-03] MEDS ORDERED: SODIUM CHLORIDE 0.9% 1000 ML 1,000 ML IV ONE (23:52)
--- NOTE | 2020-11-04 00:01 | Emergency Department Report ---
ED Abdominal Pain HPI - General Chief Complaint: Fever Stated Complaint: KALEN SIDE/BACK PAIN Time Seen by Provider: 11/03/20 21:26 Source: patient Mode of arrival: Ambulatory Limitations: No Limitations - History of Present Illness Initial Comments: 25-year-old male, history of seizure disorder, presents to ED with abdominal pain x3 days. Patient states pain is located in bilateral flank area radiating to the entire abdomen. He denies any hematuria, dysuria, urinary frequency. Patient denies any nausea or vomiting, reports diarrhea and chills. He denies any cough, shortness of breath, loss of smell or taste. Patient has not yet received his COVID-19 vaccine. MD Complaint: flank pain -: days(s) (3) Location: bilateral flank Radiation: other (abdomen) Migration to: no migration Severity: moderate Severity scale (0 -10): 9 Quality: cramping Consistency: constant Improves With: nothing Worsens With: nothing Associated Symptoms: diarrhea, fever, chills. denies: nausea, vomiting, dysuria, hematuria - Related Data Previous Rx's Medication Instructions Recorded Last Taken Type Divalproex Dr [Payton TOVAR] 250 mg PO BID #60 tablet 09/18/[address] [Payton TOVAR] 250 mg PO BID #60 tablet 07/31/19 Unknown Rx Sertraline [Zoloft] 25 mg PO QDAY #30 tab 07/31/19 Unknown Rx Naproxen [Naprosyn] 500 mg PO BID #20 tablet 11/04/20 Unknown Rx Allergies Allergy/AdvReac Type Severity Reaction Status Date / Time shellfish derived AdvReac Anaphylaxis Verified 05/27/15 19:09 ED Review of Systems ROS: Stated complaint: KALEN SIDE/BACK PAIN Other details as noted in HPI Comment: All other systems reviewed and negative Constitutional: chills, fever Respiratory: denies: cough, shortness of breath Gastrointestinal: abdominal pain, diarrhea. denies: nausea, vomiting Genitourinary: denies: dysuria, frequency, hematuria Musculoskeletal: denies: back pain Neurological: denies: headache ED Past Medical Hx - Past Medical History Previous Medical History?: Yes Hx Hypertension: No Hx Heart Attack/AMI: No Hx Congestive Heart Failure: No Hx Diabetes: No Hx Seizures: Yes (last known seizure >3 weeks ago) Hx Psychiatric Treatment: Yes ('eratic behavioral disorder') Hx Asthma: No Hx COPD: No Hx HIV: No Additional medical history: Tetanus updated yesterday - Surgical History Past Surgical History?: Yes Hx Appendectomy: Yes (?) Additional Surgical History: cyst removed from chest ? - Social History Smoking Status: Current Every Day Smoker Substance Use Type: None - Medications Home Medications: Home Medications Medication Instructions Recorded Confirmed Last Taken Type Divalproex Dr [DepaKOTE DR] 250 mg PO BID #60 tablet 09/18/16 07/29/[address] [DepaKOTE DR] 250 mg PO BID #60 tablet 07/31/19 Unknown Rx Sertraline [Zoloft] 25 mg PO QDAY #30 tab 07/31/19 Unknown Rx Naproxen [Naprosyn] 500 mg PO BID #20 tablet 11/04/20 Unknown Rx ED Physical Exam - General Limitations: No Limitations General appearance: alert, in no apparent distress - Head Head exam: Present: atraumatic, normocephalic - Eye Eye exam: Present: normal appearance - ENT ENT exam: Present: mucous membranes moist - Neck Neck exam: Present: normal inspection - Respiratory Respiratory exam: Present: normal lung sounds bilaterally. Absent: respiratory distress - Cardiovascular Cardiovascular Exam: Present: normal rhythm, tachycardia - GI/Abdominal GI/Abdominal exam: Present: soft, tenderness (mild, diffuse). Absent: distended - Extremities Exam Extremities exam: Present: normal inspection - Back Exam Back exam: Absent: CVA tenderness (R), CVA tenderness (L) - Neurological Exam Neurological exam: Present: alert, oriented X3 - Psychiatric Psychiatric exam: Present: normal affect, normal mood - Skin Skin exam: Present: warm, dry, intact, normal color ED Course Vital Signs 11/03/20 11/03/20 11/03/20 21:23 21:27 23:45 Temperature 101.6 F H 101.6 F H 100.0 F H Pulse Rate 120 H 120 H 100 H Respiratory 20 20 18 Rate Blood Pressure 124/68 126/74 Blood Pressure 124/66 [Left] O2 Sat by Pulse 98 100 94 Oximetry 11/03/20 11/04/20 11/04/20 23:49 00:01 00:13 Temperature Pulse Rate 105 H 93 H Respiratory 22 22 18 Rate Blood Pressure 126/74 126/74 Blood Pressure [Left] O2 Sat by Pulse 98 96 Oximetry 11/04/20 11/04/20 11/04/20 00:15 00:41 00:43 Temperature Pulse Rate 96 H 99 H Respiratory 21 12 18 Rate Blood Pressure 126/74 120/61 Blood Pressure [Left] O2 Sat by Pulse 97 98 Oximetry 11/04/20 11/04/20 00:45 01:01 Temperature Pulse Rate 89 87 Respiratory 18 22 Rate Blood Pressure 120/61 120/61 Blood Pressure [Left] O2 Sat by Pulse 96 100 Oximetry ED Medical Decision Making - Lab Data Result diagrams: 11/03/20 21:31 11/03/20 21:31 Critical care attestation.: If time is entered above; I have spent that time in minutes in the direct care of this critically ill patient, excluding procedure time. ED Disposition Clinical Impression: Abdominal pain, Fever, Diarrhea Disposition: - TO HOME OR SELFCARE Is pt being admited?: No Condition: Stable Instructions: Viral Illness, Adult Additional Instructions: Outpatient Covid testing is advised to rule out COVID-19 as a cause of your symptoms. Quarantine as necessary. Referrals: PRIMARY CARE, [Primary Care Provider] - 3-5 Days Time of Disposition: :30
--- NOTE | 2020-11-04 00:52 | XRay Report ---
CHEST 1 VIEW INDICATION / CLINICAL INFORMATION: fever, flank pain. COMPARISON: Chest radiograph 07/29/2018 FINDINGS: SUPPORT DEVICES: None. HEART / MEDIASTINUM: No significant abnormality. LUNGS / PLEURA: No significant pulmonary or pleural abnormality. No pneumothorax. ADDITIONAL FINDINGS: No significant additional findings. IMPRESSION: 1. No acute findings. Signer Name: Regina Bobo MD Signed: 11/04/2020 12:47 AM Workstation Name: [id number]
--- NOTE | 2020-11-04 01:22 | Cat Scan Report ---
CT ABDOMEN AND PELVIS WITHOUT CONTRAST INDICATION / CLINICAL INFORMATION: fever, abd pain. TECHNIQUE: Axial CT images were obtained through the abdomen and pelvis without IV contrast. All CT scans at [facility] location are performed using CT dose reduction for ALARA by means of automated exposure control. COMPARISON: None available. FINDINGS: LOWER CHEST: No significant abnormality. LIVER: No significant abnormality. GALLBLADDER: No significant abnormality. BILE DUCTS: No significant abnormality. PANCREAS: No significant abnormality. SPLEEN: No significant abnormality. ADRENALS: No significant abnormality. RIGHT KIDNEY and URETER: No significant abnormality. LEFT KIDNEY and URETER: No significant abnormality. STOMACH and SMALL BOWEL: No significant abnormality. COLON: No significant abnormality. APPENDIX: Not definitively seen, but there are no findings to suggest acute appendicitis. PERITONEUM: No free fluid. No free air. No fluid collection. LYMPH NODES: No significant adenopathy. AORTA and ARTERIES: No significant abnormality. IVC and VEINS: No significant abnormality. URINARY BLADDER: No significant abnormality. REPRODUCTIVE ORGANS: No significant abnormality. ADDITIONAL FINDINGS: A sebaceous cyst is noted along the left flank. SKELETAL SYSTEM: No significant abnormality. IMPRESSION: 1. No significant abnormality. Signer Name: Regina Bobo MD Signed: 11/04/2020 1:17 AM Workstation Name: [id number]
[2020-11-04 02:24] VITALS: BP 119/68
== END 2020-11-04 02:30 | disposition home or self-care (01) ==
LOC: ED 18:08
DX: R19.7 Diarrhea, unspecified (principal); R50.9 Fever, unspecified; R10.9 Unspecified abdominal pain; F17.200 Nicotine dependence, unspecified, uncomplicated; Z79.899 Other long term (current) drug therapy; Z91.013 Allergy to seafood; Z86.69 Personal history of other diseases of the nervous system and sense organs; Z90.49 Acquired absence of other specified parts of digestive tract; Z98.890 Other specified postprocedural states
CPT/HCPCS: 36415; 71045; 74176; 80053; 81001; 82140; 82550; 85025; 87040; 96361; 96374; 96375; 99284; J2270; J2405; J7030

== ENCOUNTER 2021-03-17 10:05 | Emergency (ER) | payer SELFPAY ==
[2021-03-17 11:35] VITALS: BP 128/56
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
[2021-03-17 15:00] LABS: Basophils # (Auto) 0.1 K/mm3 (0.0-0.1); Eosinophils # (Auto) 0.2 K/mm3 (0.0-0.4); Eosinophils % (Auto) 2.4 % (0.0-4.3); Hematocrit 48.1 % (35.5-45.6); Lymphocytes # (Auto) 3.1 K/mm3 (1.2-5.4); Lymphocytes % (Auto) 49.8 % (13.4-35.0); Mean Corpuscular HGB Conc 33 % (32-34); Mean Corpuscular Volume 82 fl (84-94); Monocytes # (Auto) 0.6 K/mm3 (0.0-0.8); Monocytes % (Auto) 9.9 % (0.0-7.3); Platelet Count 259 K/mm3 (140-440); Red Blood Count 5.84 M/mm3 (3.65-5.03); Red Cell Distribution Width 15.5 % (13.2-15.2)
[2021-03-17 15:17] LABS: Alanine Aminotransferase 24 units/L (7-56); Albumin 4.4 g/dL (3.9-5); BUN/Creatinine Ratio 8; Blood Urea Nitrogen 7 mg/dL (9-20); Calcium 8.8 mg/dL (8.4-10.2); Hemolysis Index 0
== END 2021-03-17 15:15 | disposition home or self-care (01) ==
LOC: ED 10:05
DX: R10.9 Unspecified abdominal pain (principal); F17.200 Nicotine dependence, unspecified, uncomplicated; Z86.69 Personal history of other diseases of the nervous system and sense organs; Z90.49 Acquired absence of other specified parts of digestive tract; Z98.890 Other specified postprocedural states; Z79.899 Other long term (current) drug therapy; Z91.013 Allergy to seafood; V49.49XA Driver injured in collision with other motor vehicles in traffic accident, initial encounter; Y92.410 Unspecified street and highway as the place of occurrence of the external cause; Y93.89 Activity, other specified; Y99.8 Other external cause status
CPT/HCPCS: 36415; 80053; 83690; 85025

== ENCOUNTER 2021-04-13 22:47 | Emergency (ER) | payer OTHER ==
[2021-04-13 22:59] VITALS: BP 110/66
[2021-04-13] MEDS ORDERED: TETANUS,DIPH,PERTUSS(ACELL) VACCINE 0.5 ML SYRINGE IM ONE (23:14)
[2021-04-13] MEDS ORDERED: LIDOCAINE (1%) 10 MG/1 ML VIAL 20 ML MDV INFILTRATI ONE (23:14)
--- NOTE | 2021-04-13 23:19 | Emergency Department Report ---
ED General Adult HPI - General Chief complaint: Wound/Laceration Stated complaint: CUT FINGER Time Seen by Provider: 04/13/21 23:14 Source: patient Mode of arrival: Ambulatory Limitations: No Limitations - History of Present Illness Initial comments: 26-year-old [id number] male patient presents to the emergency department with complaints of an accidental laceration to his left third finger occurring tonight. Patient states he accidentally cut himself with a knife in the kitchen. No other injuries. Cannot recall last tetanus immunization. Denies paresthesias, numbness, weakness, foreign body sensation. Denies all other complaints at this time. - Related Data Previous Rx's Medication Instructions Recorded Last Taken Type Divalproex Dr [SheelaTE DR] 250 mg PO BID #60 tablet 09/18/[address] [DepaKOTE DR] 250 mg PO BID #60 tablet 07/31/19 Unknown Rx Sertraline [Zoloft] 25 mg PO QDAY #30 tab 07/31/19 Unknown Rx Naproxen [Naprosyn] 500 mg PO BID #20 tablet 11/04/20 Unknown Rx Acetaminophen 1,000 mg PO TID PRN #30 capsule 03/17/21 Unknown Rx Mupirocin [Bactroban 2%] 1 applic TP TID #1 tube 04/14/21 Unknown Rx Allergies Allergy/AdvReac Type Severity Reaction Status Date / Time shellfish derived AdvReac Anaphylaxis Verified 04/13/21 22:54 ED Review of Systems ROS: Stated complaint: CUT FINGER Other details as noted in HPI Other: GENERAL: Negative for fever. CARDIOVASCULAR: Negative for chest pain. PULMONARY: Negative for shortness of breath. GASTROINTESTINAL: Negative for abdominal pain. MUSCULOSKELETAL: Negative for back pain. NEUROLOGICAL: Negative for headache. INTEGUMENTARY: Positive for laceration. ED Past Medical Hx - Past Medical History Previous Medical History?: Yes Hx Hypertension: No Hx Heart Attack/AMI: No Hx Congestive Heart Failure: No Hx Diabetes: No Hx Seizures: Yes (last known seizure >3 weeks ago) Hx Psychiatric Treatment: Yes ('eratic behavioral disorder') Hx Asthma: No Hx COPD: No Hx HIV: No Additional medical history: Tetanus updated yesterday - Surgical History Past Surgical History?: Yes Hx Appendectomy: Yes (?) Additional Surgical History: cyst removed from chest ? - Social History Smoking Status: Current Every Day Smoker Substance Use Type: Alcohol - Medications Home Medications: Home Medications Medication Instructions Recorded Confirmed Last Taken Type Divalproex Dr [DepaKOTE DR] 250 mg PO BID #60 tablet 09/18/16 07/29/[address] [DepaKOTE DR] 250 mg PO BID #60 tablet 07/31/19 Unknown Rx Sertraline [Zoloft] 25 mg PO QDAY #30 tab 07/31/19 Unknown Rx Naproxen [Naprosyn] 500 mg PO BID #20 tablet 11/04/20 Unknown Rx Acetaminophen 1,000 mg PO TID PRN #30 capsule 03/17/21 Unknown Rx Mupirocin [Bactroban 2%] 1 applic TP TID #1 tube 04/14/21 Unknown Rx ED Physical Exam - General Limitations: No Limitations - Other Other exam information: General: Awake, appropriately interactive, no acute distress. Neck: Supple. Full range of motion intact. Cardiovascular: Normal peripheral perfusion. Pulmonary: No respiratory distress. Patient is speaking normally without use of accessory muscles. Skin: 1 cm curvilinear laceration to the middle 1/3 of the lateral aspect of the left third digit involving skin and subcutaneous tissue, minimal active bleeding, wound edges poorly approximated. Active and passive range of motion intact with and without resistance in all directions. No visible injury to the tendon. No visible or palpable foreign body. Distal neurovascular and motor/sensory function intact. Neurological: No facial asymmetry. Speech is clear. Follows commands. Patient is alert and oriented. Musculoskeletal: Moves all four extremities spontaneously with normal range of motion. Psych: Cooperative. Appropriate mood and affect. ED Course Vital Signs 04/13/21 04/13/21 22:55 22:59 Temperature 98.8 F Respiratory 17 18 Rate Blood Pressure 110/66 O2 Sat by Pulse 98 Oximetry - Procedure Description Procedures done: Verbal consent was obtained from the patient. The site was identified. Hand hygiene was observed. The area was prepped and draped. The wound was irrigated extensively with normal saline. The wound was cleansed with Betadine. The wound was explored thoroughly for foreign body. No foreign body was found. Digital block was performed using 1% lidocaine. Approximately 8 mL of anesthetic was infused at the base of the left third digit. Four 4-0 Prolene sutures were placed in a simple interrupted fashion. Repeat neurovascular exam intact. Finger splint applied. Antibiotic ointment applied. Dressing applied. Patient tolerated procedure well without complications. ED Medical Decision Making - Medical Decision Making Differential diagnosis including but not limited to: laceration, abrasion, tendon injury, neurovascular injury Patient presents emergency department with complaints of accidental laceration to his left third finger. He is afebrile, hemodynamically stable, neurovascularly intact. Tetanus updated in the emergency department. Laceration repaired without complications. See procedure note for details. Patient will be discharged home to follow-up with primary care provider for wound recheck/suture removal. Emphasized the importance of limited range of motion to the affected digit in order to help preserve suture placement. Patient expressed understanding and is agreeable to plan of care. Wound care precautions discussed. Strict return precautions provided. Repeat exam is unremarkable and benign. History, exam, diagnostic testing, and current condition do not suggest worrisome pathology to warrant further testing, continued ED treatment, admission, or surgical evaluation at this point. Given the low probability of a significant medical illness, it would be more likely to result in harm than benefit to perform further testing at this stage. Discussed findings, presumptive diagnosis, need for follow-up and specific signs/symptoms that should prompt immediate return to the emergency department. Instructions were explained in detail to the patient in addition to giving written discharge information. Patient expressed understanding and was given the opportunity to ask questions, all of which were satisfactorily answered prior to discharge home. Critical care attestation.: If time is entered above; I have spent that time in minutes in the direct care of this critically ill patient, excluding procedure time. ED Disposition Clinical Impression: Finger laceration Qualifiers: Encounter type: initial encounter Finger: middle finger Damage to nail status: without damage Foreign body presence: without foreign body Laterality: left Qualified Code(s): S61.213A - Laceration without foreign body of left middle finger without damage to nail, initial encounter Disposition: 01 HOME / SELF CARE / HOMELESS Is pt being admited?: No Does the pt Need Aspirin: No Condition: Stable Instructions: Sutured Wound Care, [id number] Additional Instructions: Take Tylenol every 4 hours and Motrin every 8 hours as needed for pain. Apply Bactroban ointment to affected area 3 times daily. Keep wound clean and covered. Change dressing daily. Wear finger splint as directed to help preserve suture placement. Follow-up with primary care provider in 10 to 14 days for suture removal. Call Friday to schedule an appointment. See referral information below. Return to the emergency department immediately for new or worsening symptoms. Prescriptions: Mupirocin [Bactroban 2%] 1 applic TP TID #1 tube Referrals: SAIDA MIJARES MD [Staff Physician] - 3-5 Days [facility] [Provider Group] - 3-5 Days Time of Disposition: 00:32
[2021-04-14] MEDS ORDERED: NEOMY 3.5 MG/BACIT 400 UNITS/POLY B 5000 UNITS/GM OINT PACKET TP ONE (00:26)
== END 2021-04-14 01:26 | disposition home or self-care (01) ==
LOC: ED 22:47
DX: S61.213A Laceration without foreign body of left middle finger without damage to nail, initial encounter (principal); F17.200 Nicotine dependence, unspecified, uncomplicated; W26.0XXA Contact with knife, initial encounter; Y93.9 Activity, unspecified; Y92.89 Other specified places as the place of occurrence of the external cause
CPT/HCPCS: 12001; 90471; 90715; 99282; A6250